=== PATIENT | male | born 1935 | race Caucasian/White ===

== ENCOUNTER 2019-06-12 09:56 | Day surgery (SDC) | payer MEDICARE ==
--- NOTE | 2019-06-11 07:06 | HP ---
CHIEF COMPLAINT: "I am here for neck surgery." HISTORY OF PRESENT ILLNESS: Mr. Tomlinson is an 84-year-old gentleman. He was seen in February for neck pain and arm symptoms. There was myelopathy on his exam, so I got a CT myelogram to see how much cord compression there was. He complains that his balance is not what it once was, and he has some finger dexterity issues and hand weaknesses. There is pain down the left arm. It used to wrap around the shoulder and go to the forearm, but now it is from the elbow down and it affects the radial rather than ulnar side of the hand and the base of the thumb. There is not much discomfort in the small finger. PAST MEDICAL HISTORY: Anemia, arthritis, asthma due to seasonal allergies, atherosclerosis of both carotid arteries, back pain, bradycardia, cataracts, does use hearing aid, full dentures, GERD, hearing loss, hyperlipidemia, kidney stone , neuromuscular disorder, nonrheumatic mitral regurgitation, pacemaker, paroxysmal atrial fibrillation, psoriasis, sick sinus syndrome, wearing glasses for reading. PAST SURGICAL HISTORY: Adenoidectomy as a child, cardiac catheterization procedure was CV left atrial appendage closure ([facility]), cardiac pacemaker placement [facility], carpal tunnel release 15 years ago, cataract extraction, colonoscopy, hemorrhoidectomy 40 years ago, insertion of neurotransmitter permanent subcutaneous in the back 2017, placed 2 spacers, lithotripsy 40 years ago, nose surgery 45 years ago in septum, refractory surgery 40 years ago, replacement total knee bilateral , sinus surgery, spine surgery 15 years ago, tonsillectomy, upper GI endoscopy in 2014. CURRENT MEDICATIONS: 1. Gabapentin 600 mg 2. Diclofenac 1% gel 3. Eliquis 4. Atorvastatin 20 mg 5. Metoprolol 50 mg 6. Humira Pen 40 mg/0.8 mL pen injector 7. Trazodone 50 mg 8. Incruse Ellipta 62.5 mcg attenuation blister with device 9. Mirapex 0.5 mg 10. Spiriva with HandiHaler 18 mcg 11. Optivar 0.05% ophthalmic solution 12. Hydrocodone 10-325 mg 13. Kenalog 0.1% cream 14. Albuterol 90 mcg inhaler 15. Nexium 20 mg 16. Iron 1.5 mg 17. Singulair 10 mg 18. Viagra 100 mg ALLERGIES: IODINATED CONTRAST MEDIA, REACTION ANAPHYLAXIS. FAMILY HISTORY: Alcohol abuse in brother, mother, and sister. Cancer in brother , liver. Drug abuse in brother. No known father. SOCIAL HISTORY: Former smoker, one pack a day for 28 years, last smoked in 1973 , smoked for 46 years. Does not use alcohol. Does not use drugs. REVIEW OF SYSTEMS: CONSTITUTIONAL: Denies fever or chills. EAR, NOSE, AND THROAT: Denies any new changes in vision or hearing. CARDIAC: Denies chest pain, shortness of breath, or diaphoresis. PULMONARY: Denies shortness of breath, cough, hemoptysis. GI: Denies abdominal pain, nausea, vomiting, diarrhea, change in stool formation and consistency. : Denies trouble with urination, frequency of urination, bloody urine. SKIN: Denies skin rash, bruising, bleeding, skin masses. MUSCULOSKELETAL: As per history of present illness. NEUROLOGIC: As per history of present illness. PSYCHOLOGIC: Denies anxiety, depression, personality changes, crying. PHYSICAL EXAMINATION: HEENT: Pupils are equal. Extraocular movements are intact. NECK: Supple. Soft. No masses are noted. Range of motion is intact and nonpainful. NEUROLOGIC: Awake, alert, and oriented x3. Memory, attention, fund of knowledge normal. Cranial nerves grossly intact. Upper extremities, there is good strength in the deltoids, biceps, and triceps. The wrist extensors are strong. The finger extensors and interossei are only mildly weak bilaterally. There is no dermatomal sensory loss today. He has 1-beat of clonus in the left ankle and 1-1/2 in the right. IMAGING: The myelogram showed right-sided foraminal stenosis at C3-4, severe central stenosis with cord compression at C4-5, left foraminal stenosis at L5-6, mild foraminal disease at C6-7 bilaterally, and mild left foraminal disease at C7-T1. X-rays, flexion and extension views are stable. 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 Mr. Tomlinson agreed to have ACDF surgery because of the cord compression, myelopathy, C6 nerve root irritation as well. PLAN: Two level ACDF at C4-5 and C5-6. Mr. Tomlinson will need to be off Eliquis one week before surgery and two weeks after surgery. He can remain on a baby aspirin. If full strength aspirin is necessary, he will have to stay in the hospital after surgery. Anesthesia clearance has been done by Dr. Pierre. INFORMED CONSENT: I discussed indications, risks, benefits, and alternatives as well as the expected outcomes from anterior cervical diskectomy and fusion. The risks disclosed include, but are not limited to, bleeding, infection, CSF leak, damage to the trachea, esophagus or vocal cord, dysphagia, spinal cord injury, wheelchair dependency, ventilator dependency, stroke, major blood vessel injury , and anesthesia complications including . Long-term risks include need for further surgery or hardware failure. The patient expressed understanding of our discussion and would like to proceed. Job ID: [id number] [facility]
[2019-06-11 13:24] VITALS: BMI 27.8
[2019-06-12] MEDS ORDERED: Dexamethasone 20 MG/5 ML VIAL ONE (10:34)
[2019-06-12] MEDS ORDERED: diphenhydrAMINE 50 MG/ML VIAL ONE (10:34)
[2019-06-12] MEDS ORDERED: EPHEDRINE 25 MG/5 ML SYRINGE ONE (10:34)
[2019-06-12] MEDS ORDERED: Glycopyrrolate 0.2 MG/ML 5 ML SYRINGE ONE (10:34)
[2019-06-12] MEDS ORDERED: Rocuronium Bromide 10 MG/ML (10ML VIAL) ONE (10:34)
[2019-06-12] MEDS ORDERED: PHENYLEPHRINE-NS 100 MCG/ML 10 ML SYRINGE ONE (10:34)
[2019-06-12] MEDS ORDERED: Ondansetron PF 4 MG/2 ML Vial ONE (10:34)
[2019-06-12] MEDS ORDERED: PROPOFOL 200 MG/20 ML VIAL ONE (10:34)
[2019-06-12] MEDS ORDERED: Thrombin 5000 UNITS/5 ML VIAL ONE (11:25)
[2019-06-12 11:38] LABS: INR-International Normal Ratio 1.2
[2019-06-12 11:46] LABS: Hemoglobin 15.1 g/dL (14.0-18.0); Mean Corpuscular HGB CONC 33.6 g/dL (32.0-36.0); Mean Corpuscular Hemoglobin 29.6 pg (27.0-31.0); Mean Corpuscular Volume 88.2 fL (78.0-98.0); Mean Platelet Volume 9.3 fL (7.4-10.4); Platelet Count 103 thou/uL (130-400); RBC Distribution Width 14.5 % (11.5-14.5); Red Blood Cell (RBC) Count 5.08 mill/uL (4.70-6.10); White Blood Cell (WBC) Count 7.8 thou/uL (4.8-10.8)
[2019-06-12 11:51] LABS: Anion Gap 13 mmol/L (10-20); BUN (Urea Nitrogen) 13 mg/dL (8.4-25.7); Calc. Creatinine Clearance 90 mL/min (70-130); Calcium 9.5 mg/dL (7.8-10.44); Carbon Dioxide 27 mmol/L (23-31); Chloride 104 mmol/L (98-107); Estimated GFR-MDRD Greater than 90; Glucose 120 mg/dL (83-110); Potassium 4.1 mmol/L (3.5-5.1); Sodium 140 mmol/L (136-145)
[2019-06-12] MEDS ORDERED: Fentanyl 100 MCG/2 ML VIAL ONE ×3 (12:28→17:03)
[2019-06-12] MEDS ORDERED: Acetaminophen/Codeine 30-300mg Tablet PO PRN ×2 (16:14)
[2019-06-12] MEDS ORDERED: Acetaminophen 650 MG Suppository PR PRN (16:14)
[2019-06-12] MEDS ORDERED: Promethazine HCl 12.5 MG SUPP PR PRN (16:14)
[2019-06-12] MEDS ORDERED: Mag-Al 1200 mg/1200 mg/30 ML UDCUP PO PRN (16:14)
[2019-06-12] MEDS ORDERED: diphenhydrAMINE 25 MG CAP PO PRN (16:14)
[2019-06-12] MEDS ORDERED: Ondansetron PF 4 MG/2 ML Vial IVP PRN (16:14)
[2019-06-12] MEDS ORDERED: Bisacodyl 10 MG SUPP PR PRN (16:14)
[2019-06-12] MEDS ORDERED: Acetaminophen 325 MG TAB PO PRN (16:14)
[2019-06-12] MEDS ORDERED: Promethazine HCl 25 MG/ML VIAL IM PRN (16:14)
[2019-06-12] MEDS ORDERED: Promethazine 25 MG TAB PO PRN (16:14)
[2019-06-12] MEDS ORDERED: Morphine 4 MG/ML VIAL SLOW IVP PRN (16:14)
[2019-06-12] MEDS ORDERED: tiZANidine HCl 4 MG TAB PO PRN (16:14)
[2019-06-12] MEDS ORDERED: Morphine 2 MG/ML SYRINGE SLOW IVP PRN (16:14)
[2019-06-12] MEDS ORDERED: Milk Of Magnesia 30 ML UDCUP PO PRN (16:14)
[2019-06-12] MEDS ORDERED: traMADol HCl 50 MG TAB PO PRN ×2 (16:14)
[2019-06-12] MEDS ORDERED: diphenhydrAMINE 50 MG/ML VIAL IVP PRN (16:14)
[2019-06-12] MEDS ORDERED: Sodium Chloride 0.9% 1,000 ML IV SCH (16:15)
[2019-06-12] MEDS ORDERED: tiZANidine HCl 4 MG TAB ONE (16:46)
[2019-06-12] MEDS ORDERED: Tamsulosin HCl 0.4 MG CAP ONE (16:52)
[2019-06-12] MEDS ORDERED: Scopolamine 1.5 mg/72 hour Patch TD SCH (17:00)
--- NOTE | 2019-06-12 19:32 | OP ---
DATE OF PROCEDURE: 06/12/2019 [employer]ES [employer]RESPONDENCE CLERK: Chip Iqbal PA-C PREOPERATIVE INDICATION: Prevent neurological deterioration. 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 PROCEDURES PERFORMED: Anterior cervical diskectomy, intervertebral arthrodesis, placement of intervertebral structural allograft, C4-C5 and C5-C6 morselized allograft, anterior cervical plating at C4-C5 and C5-C6, operating microscope. PREOPERATIVE MEDICATION: Ancef 2 g IV. DRAIN NUMBER: Zero. DRAIN TYPE: None. DESCRIPTION OF PROCEDURE: The patient was brought to the operating room. General endotracheal anesthesia was induced. Keeping the neck in normal anatomic alignment, the head was carefully positioned in a donut-shaped headrest. A lateral fluoro radiograph was used to plan our incision. The right side of the neck was sterilely prepped and draped. We opened with a 10 blade knife and we controlled bleeding with bipolar and monopolar cautery. We dissected sharply to the platysma. We cut this muscle in line with our incision. We continued our dissection medial to the sternocleidomastoid and lateral to the trachea and esophagus. We arrived to the prevertebral space. We placed a marker at C4-C5 and took a lateral fluoro radiograph to confirm the levels upon which we were operating. We then elevated the longus colli muscles off the anterior surface of C4, C5, and C6 and placed a self-retaining lateral retractor beneath them. Distraction pins were placed at C4 and C6, and we distracted across both of the intervening interspaces. We incised the interspaces with a 15 blade knife and removed disk contents using curettes and rongeurs. The operative microscope was brought into the field. Under microscopic magnification using microsurgical techniques, we removed the remainder of the intervertebral discs. We accessed the ventral epidural space with a micro curette, and then used a Kerrison to remove posterior osteophytes and posterior longitudinal ligament across the entire interspace from one neural foramen to the other at C4-C5 and C5-C6. When the dura was well decompressed throughout, we turned our attention to arthrodesis. Using curettes, we prepared the endplates for grafting. We measured the height of each of the two interspaces to 7 mm. Two separate 7 mm structural allografts were brought in the field. The cancellous bone was filled with demineralized bone matrix as morselized allograft. These allografts were advanced into the respective interspaces under radiographic guidance to the appropriate depth. We then removed our distraction pins. The operative microscope was taken back out of the field. A 34 mm anterior cervical plate was brought into the field. We drilled airplane pilot helper holes through the plate into the vertebral bodies at C4, C5, C6. We affixed the plate using 14 mm screws. Fixed angle screws used at C6 and variable angle screws at C4 and C5. We engaged the locking mechanism over each of the 6 screws. AP and lateral fluoro radiographs confirmed adequate positioning of our instrumentation. We irrigated copiously with bacitracin irrigation. We closed the wound in anatomical layers. We applied a sterile dressing. This was a clean case, no contamination. Job ID: [id number]
[2019-06-12] MEDS ORDERED: CEFAZOLIN 2 GM in Premix Bag 1 BAG IVPB SCH (21:00)
[2019-06-13] MEDS ORDERED: Tamsulosin HCl 0.4 MG CAP PO SCH (06:00)
== END 2019-06-12 19:40 | disposition home or self-care (01) ==
LOC: SDC 09:56
PROVIDERS: ATTEND Neurological Surgery
PROC: 0RG2070 Fusion of 2 or more Cervical Vertebral Joints with Autologous Tissue Substitute, Anterior Approach, Anterior Column, Open Approach (ICD-10-PCS; principal; 2019-06-12)
PROC: 0RG20A0 Fusion of 2 or more Cervical Vertebral Joints with Interbody Fusion Device, Anterior Approach, Anterior Column, Open Approach (ICD-10-PCS; 2019-06-12)
PROC: 0RT30ZZ Resection of Cervical Vertebral Disc, Open Approach (ICD-10-PCS; 2019-06-12)
DX: M50.021 Cervical disc disorder at C4-C5 level with myelopathy (principal); M50.121 Cervical disc disorder at C4-C5 level with radiculopathy; M48.02 Spinal stenosis, cervical region; K21.9 Gastro-esophageal reflux disease without esophagitis; D64.9 Anemia, unspecified; J45.909 Unspecified asthma, uncomplicated; I48.0 Paroxysmal atrial fibrillation; Z79.01 Long term (current) use of anticoagulants; Z79.899 Other long term (current) drug therapy; Z91.041 Radiographic dye allergy status; Z95.0 Presence of cardiac pacemaker
CPT/HCPCS: 20930; 20936; 22551; 22552; 22853 ×2; 76000; 80048; 85027; 85610; 85730; 93005; C1713 ×2; 36415; 93010; J0690; J1100; J1200; J2405; J2704; J3010; J3490